=== PATIENT | male | born 1995 | race Caucasian/White ===

== ENCOUNTER 2016-11-24 10:43 | Emergency (ER) | payer MEDICAID, OTHER ==
[2016-11-24 11:02] VITALS: TEMP 99.1
--- NOTE | 2016-11-24 12:42 | EDPHY ---
H & P Time Seen by Provider: 11/24/16 11:25 HPI/ROS: CHIEF COMPLAINT: abscess HISTORY OF PRESENT ILLNESS: 21-year-old male presents emergency department with an abscess to his left arm from IV drug use. Patient reports an abscess x4 days in his left antecubital fossa that spontaneously drained yesterday. He has another abscess that started 2 days ago in his left bicep. Patient denies fevers or chills. No nausea or vomiting, no other complaints. Smoking Status: Light smoker Physical Exam: GEN: Awake, alert, oriented, no acute distress RESP: nl resp effort MSK: Full active range of motion SKIN: Left antecubital fossa with 1 cm x 1 cm area of open skin with good granulation tissue seen, no drainage, mild surrounding erythema, no fluctuance or induration, left anterior biceps with 3 cm x 3 cm area of erythema, fluctuance, tenderness to palpation, full range of motion of left elbow, 2+ radial pulses, sensation intact to light touch Constitutional: Initial Vital Signs Temperature (C) 37.3 C 11/24/16 11:00 Heart Rate 64 11/24/16 11:00 Respiratory Rate 18 11/24/16 11:00 Blood Pressure 116/62 11/24/16 11:00 O2 Sat (%) 96 11/24/16 11:00 O2 Delivery Mode Room Air Allergies/Adverse Reactions: No Known Allergies Allergy (Verified 12/14/12 05:25) MDM/Departure - MDM Procedures: Procedure: Incision and Drainage abscess. The patient's abscess was located on the left upper arm. Risks, benefits, alternatives discussed with the patient and consent obtained. The area was prepped and draped in sterile fashion. The patient received local anesthesia with 1% lidocaine with epinephrine. The abscess was incised with a #11 blade and purulent drainage was expressed. The patient tolerated the procedure well. The procedure was performed by myself. ED Course/Re-evaluation: Abscess drained without difficulty, case management has spoke with the patient and given him resources for cessation of drug use. - Depart Disposition: Home, Routine, Self-Care Clinical Impression: Abscess of left arm Condition: Good Instructions: Incision and Drainage (ED) Additional Instructions: Warm compresses to your left arm 3-4 times per day. Follow up with the resources provided by the showcase trimmer. Return to the emergency department for any worsening symptoms, new symptoms or concerns. Referrals: [facility],. [Clinic] - As per Instructions [facility],. [Clinic] - As per Instructions
[2016-11-24 12:59] VITALS: BP 112/53; PULSE 82; RESP 16; O2SAT 94
--- NOTE | 2016-11-26 17:07 | ASMTCMCOM ---
CM Note CM Note Notes: Case Management: Met with patient to discuss resources for treatment and recovery. Patient is open, conversive to this. He tells me that he was at [facility] in [place] in 2013 and was "clean" for 9 months. He states that this was a good program and I have encouraged him to explore going back there. He accepted contact information for their television schedule coordinator and is aware that he may qualify for "no cost" treatment. I have also discussed and provided information re harm reduction treatment including methadone and/or Suboxone clinics/providers. Patient tells me that he has information regading clean needle programs/excahnges. Although patient initially stated that his parents and brother "want nothing to do with him" he quickly acknowledged that they have and will be supportive of his efforts to help himself. I have encouraged patient to reach out to [facility] while he is here so as to have a safe plan for detox and recovery if he chooses. Date Signed: 11/24/2016 12:53 PM Electronically Signed By:Joyce Berger
== END 2016-11-24 12:57 | disposition home or self-care (01) ==
PROC: 0H9CXZZ Drainage of Left Upper Arm Skin, External Approach (ICD-10-PCS; principal; 2016-11-24)
DX: L02.414 Cutaneous abscess of left upper limb (principal); F17.200 Nicotine dependence, unspecified, uncomplicated

== ENCOUNTER 2017-01-05 19:07 | Emergency (ER) | payer MEDICAID ==
[~2017-01-05 19:07] MED LIST: CEPHALEXIN 500 MG CAP PO SCH; SULFAMETHOX/TMP 800/160 MG 1 TAB PO SCH
[2017-01-05 19:58] VITALS: BP 103/45; PULSE 55; RESP 18; TEMP 99; O2SAT 96
--- NOTE | 2017-01-05 21:06 | EDPHY ---
H & P Smoking Status: Light smoker Time Seen by Provider: 01/05/17 20:51 HPI/ROS: CHIEF COMPLAINT: Abscess left arm HISTORY OF PRESENT ILLNESS: 21-year-old male presents to the emergency department with an abscess to his left arm. The patient has a history of IV substance abuse, heroin. He developed suture abscess and was initially seen at urgent care few days ago. The abscess was drained. He was given prescriptions for antibiotics however he did not fill them. He presents now requesting medication. He denies any other trauma or injury. No fevers or chills. He states that it feels better although it is still sore. ROS: Denies retained foreign body, paresthesias in his upper extremities, fever. (Liyah Mazariegos) Past Medical/Surgical History: IV drug abuse (Liyah Mazariegos) Social History: Homeless (Liyah Mazariegos) Physical Exam: On examination the patient has if lesion to the left, proximal humerus on the lateral aspect. It is an open weeping wound with a diameter of nearly 2 cm. He has surrounding induration. He has full range of motion of the left upper extremity. He has numerous track kaplan noted in the left upper extremity. He has no lymphangitis. No palpable axillary lymphadenopathy. Afebrile and nontoxic-appearing. (Liyah Mazariegos) Constitutional: Initial Vital Signs Temperature (C) 37.2 C 01/05/17 19:55 Heart Rate 55 L 01/05/17 19:55 Respiratory Rate 18 01/05/17 19:55 Blood Pressure 103/45 L 01/05/17 19:55 O2 Sat (%) 96 01/05/17 19:55 O2 Delivery Mode Room Air Allergies/Adverse Reactions: No Known Allergies Allergy (Verified 01/05/17 19:55) Home Medications: Medication Instructions Recorded Cephalexin [Keflex] 500 mg PO QID #28 cap 01/05/17 Sulfamethox/Tmp 800/160 mg 1 tab PO BID #14 tab 01/05/17 [Bactrim DS] MDM/Departure - MDM ED Course/Re-evaluation: 21-year-old male presents to the emergency department with abscess to the left proximal humerus. The abscess has already been incised and drained by urgent care. The wound was thoroughly cleansed and dressing was applied since he had a towel wrapped around. Will be given Keflex and Bactrim. These were filled through the [facility]. Patient was given primary care referral. Instructed to follow up on Sunday with them to recheck. (Liyah Mazariegos) The patient was evaluated and managed by the physician client account assistant. I have reviewed this chart and I agree with the findings and plan of care as documented , as indicated by my signature. I am the secondary supervising physician. ( Chelsea Platt) - Depart Disposition: Home, Routine, Self-Care Clinical Impression: Abscess of left arm Condition: Good Instructions: Abscess (ED) Additional Instructions: Keflex and Bactrim as directed for one week. Follow up with primary care provider on Sunday to recheck. Prescriptions: Cephalexin [Keflex] 500 mg PO QID #28 cap Sulfamethox/Tmp 800/160 mg [Bactrim DS] 1 tab PO BID #14 tab Referrals: [facility] [Outside] - As per Instructions [facility] [Outside] - 1-2 days without fail
== END 2017-01-05 21:21 | disposition home or self-care (01) ==
DX: L02.414 Cutaneous abscess of left upper limb (principal); F17.200 Nicotine dependence, unspecified, uncomplicated